=== PATIENT | female | born 1980 | race African-American/Black ===

== ENCOUNTER → 2021-04-10 15:03 | Outpatient (CLI) | payer MEDICARE, SELFPAY ==
[2021-04-10 15:05] LABS: MANUAL DIFFERENTIAL MANUAL DIFFERENTIAL (MANUAL DIFF)
[2021-04-10 15:44] LABS: Basophils % 0.5 % (0.1-2.0); Eosinophils # 0.1 K/mm3 (0.0-0.4); Eosinophils % 1.6 % (0.1-12.0); Hematocrit 47.4 % (37.0-47.0); Hemoglobin 15.7 g/dL (12.2-16.2); Lymphocytes # 1.4 K/mm3 (0.7-4.5); Lymphocytes % 19.2 % (10-50); Mean Corpuscular HGB Conc 33.2 g/dL (31.8-35.4); Mean Corpuscular Hemoglobin 33.4 pg (27.0-31.2); Mean Corpuscular Volume 100.5 fl (81-99); Mean Platelet Volume 7.6 fl (7.4-10.4); Monocytes # 0.3 K/mm3 (0.1-1.0); Monocytes % 4.7 % (1.7-9.3); Neutrophils # 5.2 K/mm3 (1.8-7.8); Neutrophils % 73.9 % (37.0-80.0); Platelet Count 374 K/mm3 (142-424); Red Blood Count 4.71 M/mm3 (4.20-5.40); Red Cell Distribution Width 13.6 % (11.5-17.5); White Blood Count 7.1 K/mm3 (4.8-10.8)
[2021-04-10 16:13] LABS: Alanine Aminotransferase 18 U/L (12-78); Albumin/Globulin Ratio 1.7 (1.1-1.8); Alkaline Phosphatase 60 U/L (38-126); Anion Gap 11.8 mEq/L (5-15); Aspartate Amino Transferase 25 U/L (14-36); Bilirubin,Total 0.6 mg/dl (0.2-1.3); Blood Urea Nitrogen 10 mg/dl (7-17); Carbon Dioxide 27 mmol/L (22.0-30.0); Chloride 104 mmol/L (98-107); Estimated Glomerular Filt Rate 137 ml/min (>60); GFR (African American) 165 ML/MIN (>60); Glucose 84 mg/dl (74-100); Potassium 3.8 mmoL/L (3.5-5.1); Sodium 139 mmol/L (136-145)
[2021-04-10 16:24] LABS: Lymphocytes % 17 % (10-50); Macrocytosis 1+; Monocytes % 6 % (2-9); Neutrophils % 69 % (42-76); Platelet Estimate Normal; Total Cells Counted 100
[2021-04-10 17:18] LABS: Folate 3.88 ng/mL
== END ==
PROVIDERS: Visit Provider Specialist
DX: G35 Multiple sclerosis (principal)
CPT/HCPCS: 36415; 80053; 82746; 85007; 85014; 85018; 85048; 85049

== ENCOUNTER → 2021-05-01 11:09 | Outpatient (CLI) | payer MEDICARE, SELFPAY ==
[2021-05-05 10:44] LABS: Miscellaneous Test <1.5
== END ==
PROVIDERS: Visit Provider Specialist
DX: G35 Multiple sclerosis (principal)

== ENCOUNTER 2024-01-02 10:22 | Outpatient (CLI) | payer MEDICARE, MEDICAID, SELFPAY ==
--- NOTE | 2024-01-02 10:30 | XR_ITS ---
FINAL REPORT CLINICAL HISTORY: preoperative exam COUGH/ CONGESTION COMPARISON: None FINDINGS: There is no evidence of effusion or other pleural disease. The mediastinum has a normal appearance. The cardiac silhouette is unremarkable. IMPRESSION: Unremarkable chest exam. Reviewed, Interpreted and Dictated by Vishnu Tanner MD Transcribed by Kelley Salazar Authenticated and [facility]
--- NOTE | 2024-01-02 10:30 | XR_ITS ---
FINAL REPORT CLINICAL HISTORY: foot pain COMPARISON: None FINDINGS: LEFT FOOT: Three views show no evidence of acute displaced fracture or dislocation of the visualized bony architecture. The joint spaces appear normal. IMPRESSION: Unremarkable exam. Reviewed, Interpreted and Dictated by Vishnu Tanner MD Transcribed by Kelley Salazar Authenticated and [facility]
--- NOTE | 2024-01-02 10:30 | XR_ITS ---
FINAL REPORT CLINICAL HISTORY: foot pain COMPARISON: None FINDINGS: RIGHT FOOT: Three views show no evidence of acute displaced fracture or dislocation of the visualized bony architecture. The joint spaces appear normal. IMPRESSION: Unremarkable exam. Reviewed, Interpreted and Dictated by Vishnu Tanner MD Transcribed by Kelley Salazar Authenticated and [facility]
--- NOTE | 2024-01-02 11:08 | ECG_ITS ---
APPROVED REPORT Exam: Resting ECG HR:75 bpm ECG Measurements Heart Rate 75 AXES HI 181 P 79 QRSd 97 QRS 68 QT 376 T 68 QTc 404 Conclusion SINUS RHYTHM NONSPECIFIC T-WAVE ABNORMALITY BORDERLINE ECG UNCONFIRMED REPORT Electronically signed by : Karlo Dorsey MD 01/02/2024 17:01:15
[2024-01-02 11:11] LABS: Basophils # 0.2 K/mm3 (0-0.2); Basophils % 3.3 % (0.1-2.0); Eosinophils # 0.3 K/mm3 (0.0-0.4); Eosinophils % 4.9 % (0.1-12.0); Hematocrit 46.9 % (37.0-47.0); Hemoglobin 15.5 g/dL (12.2-16.2); Lymphocytes % 17.6 % (10-50); Mean Corpuscular HGB Conc 33.1 g/dL (31.8-35.4); Mean Corpuscular Hemoglobin 33.5 pg (27.0-31.2); Mean Corpuscular Volume 101.3 fl (81-99); Mean Platelet Volume 7.6 fl (7.4-10.4); Monocytes # 0.4 K/mm3 (0.1-1.0); Monocytes % 6.5 % (1.7-9.3); Neutrophils % 67.7 % (37.0-80.0); Platelet Count 341 K/mm3 (142-424); Red Blood Count 4.63 M/mm3 (4.20-5.40); Red Cell Distribution Width 13.6 % (11.5-17.5); White Blood Count 5.8 K/mm3 (4.8-10.8)
[2024-01-02 11:14] LABS: Chloride 104 mmol/L (98-107); Potassium 3.2 mmoL/L (3.5-5.1); Sodium 141 mmol/L (136-145)
[2024-01-02 11:16] LABS: Blood Urea Nitrogen 13 mg/dl (7-17); Estimated Glomerular Filt Rate 91 ml/min (>60); GFR (African American) 111 ML/MIN (>60)
[2024-01-02 11:17] LABS: Alanine Aminotransferase 18 U/L (12-78); Albumin Level 4.3 g/dl (3.5-5.0); Albumin/Globulin Ratio 1.3 (1.1-1.8); Alkaline Phosphatase 53 U/L (38-126); Anion Gap 9.2 mEq/L (5-15); Aspartate Amino Transferase 26 U/L (14-36); Bilirubin,Total 0.5 mg/dl (0.2-1.3); Calcium 9.2 mg/dl (8.4-10.2); Carbon Dioxide 31 mmol/L (22.0-30.0); Globulin 3.3 g/dL (1.3-3.2); Glucose 101 mg/dl (74-100); Total Protein,Serum 7.6 g/dl (6.3-8.2)
== END 2024-01-02 23:59 ==
LOC: LAB 10:24
PROVIDERS: Visit Provider Podiatrist
DX: Z01.818 Encounter for other preprocedural examination; M79.671 Pain in right foot; M79.672 Pain in left foot
CPT/HCPCS: 36415; 71046; 73630; 80053; 85025; 93005

== ENCOUNTER 2024-01-30 06:24 | Day surgery (SDC) | payer MEDICARE, MEDICAID, SELFPAY ==
[2024-01-29 09:26] VITALS: BMI 25.8
[2024-01-30] VITALS (10 sets, daily range): BP systolic 110–135; BP diastolic 69–82; PULSE 64–77; RESP 12–18; TEMP 36.2–37.2; O2SAT 96–100
[2024-01-30] MEDS: LACTATED RINGERS 1000ML 1,000 ML 100 ML IV (07:26)
[2024-01-30 07:44] LABS: Urine Pregnancy, HCG Qual. Negative (Negative)
[2024-01-30] MEDS: BUPIVACAINE 0.5% 30ML VIAL 150 MG (10:10)
--- NOTE | 2024-01-30 10:53 | P.PNANES_ITS ---
[facility] Disclaimer: The information contained in this section may have been updated after the patient was seen, as this information can be updated by other users. Medical History History of ectopic Multiple sclerosis Optic neuritis Surgical History History of cholecystectomy Family History Other Hypertension Social History Smoking Status: Current some day smoker tobacco type: cigarettes alcohol intake: current substance use type: marijuana current occupational status: disabled Travel in the last 8 weeks: None household members: family housing: house [facility] Anesthesia Checklist Patient Identification Patient Identification: Verbal (Name & ) Structural Data Admitted From: Home Planned Operative Procedure/s: bilat metetarsal head amp Consent for Planned Operative Procedure(s) Verified: Yes NPO Status Verified Time NPO: 00:00 Additional verifications Anesthesia Reactions: No Hx Blood Transfusions: No Blood Transfusion Reaction: No Airway Assessment Mallampati Score:: Class I C-Spine Mobility Assessed: Yes TMJ Mobility Assessed: Yes Dentition: Good Dentition Neurological Assessment Level of Consciousness: Awake, Alert and Appropriate Anesthesia Plan Anesthesia Risk discussed: Yes Anesthesia Plan: Verified ASA Class: II Anesthesia Type: General
--- NOTE | 2024-01-30 10:54 | EXP.ANES.I ---
[facility] Anesthesia Record Part I Anesthesia Record I Intake, IV Amount: 1,200 Hydration: Adequate Estimated blood loss (mL): 0 Urine output (mL): 0 Blood Pressure: 115/78 SaO2: 99 Pulse Rate: 71 Airway Patency: Patent Respiratory Rate: 12 Temperature: 97.2 F Patient is:: Awake and Stable Stable to PACU at:: 10:50
--- NOTE | 2024-01-30 10:59 | P.OP_ITS ---
Date of procedure: 01/30/24 Pre-op Diagnosis:: Tailor's bunions painful Bilateral feet Post-op Diagnosis:: Same Procedure performed:: Fifth metatarsal head resection left foot Fifth metatarsal head resesction right foot Surgeon:: Aram Matthew DPM DIRECTOR OUTPATIENT SERVICES:: Daniel Villasenor Anesthesia: GETA Estimated blood loss (mL): 4 Operative findings:: Expected prominent fifth metatarsal heads bilateral feet. Operative note:: Patient seen in the preop holding area. Discussed with the patient the planned procedure(s). Reviewed Consent; and confirmed the plan of care with the patient. Opportunity was provided to ask questions and concerns. Signed the surgical site with marking pen. Patient was wheeled to the operating room per staff and anesthesia. Appropriate anesthesia by anesthesia department. Fifth metatarsal head resection Left foot and Right foot was planned and surgically implemented today. Local block was given of 10 cc each foot fifth metatarsal phalangeal joint, to each foot. Feet were scrubbed, prepped, and draped in the usual aseptic manner. Exsanguinated the feet with esmarck bandages; and secured above the malleoli, as tourniquet. 1. Attention directed to the dorsal aspect of the Left fifth metatarsal head. Dorsal linear longitudinal incision was made lateral and parallel with the extensor digitorum longus tendon. At this point attention directed to the dorsal capsular structures above the metatarsal head. Appropriate instrumentation was used to free up the plantar plate and the capsular structures. Sagittal bone saw was used to resect the fifth metatarsal head with an appropriate obliquity for healing. Inspected the foot; irrigated with copious sterile normal saline. Surgically closed the wound in layers with 2-0 Vicryl, 3-0 Vicryl, and 3-0 nylon suture material. 2.Attention directed to the dorsal aspect of the Right fifth metatarsal head. Dorsal linear longitudinal incision was made lateral and parallel with the extensor digitorum longus tendon. At this point attention directed to the dorsal capsular structures above the metatarsal head. Appropriate instrumentation was used to free up the plantar plate and the capsular structures. Sagittal bone saw was used to resect the fifth metatarsal head with an appropriate obliquity for healing. Inspected the foot; irrigated with copious sterile normal saline. Surgically closed the wound in layers with 2-0 Vicryl, 3-0 Vicryl, and 3-0 nylon suture material. Dressed the Bilateral surgical with Adaptic/Xeroform (based on allergy profile) and then gauze, ABD pad, Kerlix, and an outer elastic bandage. Tourniquets were deflated and prompt hyperemic response noted to all digits of the patient's surgical foot. Patient will then be wheeled to recovery/same-day surgery based on anesthesia. Vital signs were stable and vascular status intact to the surgical foot. Tourniquet time (min): 0 Condition: stable Disposition: PACU Specimens:: none Complications:: negative
--- NOTE | 2024-01-30 11:20 | PC.NURSE ---
1120 pt voided per bedpan
--- NOTE | 2024-01-30 14:26 | EXP.ANES.II ---
[facility] Anesthesia Record Part II Anesthesia Record Part II Discharge Time: 11:20 Destination: Surgical Day Care (OP Surgery) PACU nurse assessment reviewed?: Yes Patient Condition:: Good Anesthesia Complications:: None Swallowing reflex intact?: Yes Airway Patency: Patent Cyanosis?: No Blood Pressure: 124/77 SaO2: 98 Respiratory Rate: 16 Pulse Rate: 70 Temperature: 98.8 F Mental Status: Alert & Oriented Pain level:: 0 Nausea and/or vomitting:: None Intake, IV Amount: 0 Hydration: Adequate
== END 2024-01-30 11:47 | disposition home or self-care (01) ==
PROVIDERS: Visit Provider Podiatrist
PROC: (CPT 28113; principal; 2024-01-30 08:45)
DX: M21.621 Bunionette of right foot (principal); M21.622 Bunionette of left foot; M79.672 Pain in left foot; M79.671 Pain in right foot; L84 Corns and callosities
CPT/HCPCS: 28113; 81025; J2405